=== PATIENT | male | born 1960 | race Two or more races ===

== ENCOUNTER → 2017-07-30 18:33 | Outpatient (CLI) | payer OTHER | END | disposition home or self-care (01) | LOC: RAD 18:33 | DX: M19.142 Post-traumatic osteoarthritis, left hand (principal) ==

== ENCOUNTER → 2017-08-17 | Emergency (ER) | payer OTHER | END | disposition left against medical advice (07) | LOC: ER 21:01 | DX: Z53.20 Procedure and treatment not carried out because of patient's decision for unspecified reasons (principal) ==

== ENCOUNTER → 2017-08-21 18:42 | Outpatient (CLI) | payer OTHER | END | disposition home or self-care (01) | LOC: RAD 18:42 | DX: M19.142 Post-traumatic osteoarthritis, left hand (principal) ==

== ENCOUNTER 2019-03-04 19:38 | Emergency (ER) | payer OTHER ==
[~2019-03-04] VITALS: Ht 185.4 cm; Wt 91.2 kg
[2019-03-04] MEDS ORDERED: HORIZANT300 MG (19:50)
[2019-03-04] MEDS ORDERED: PEPCID AC20 MG (19:50)
[2019-03-04] MEDS ORDERED: AMITRIPTYLINE H75 MG (19:51)
[2019-03-04] MEDS ORDERED: AMITRIPTYLINE H25 MG (19:51)
== END 2019-03-04 21:15 | disposition home or self-care (01) ==
LOC: ER 19:38
DX: S61.223A Laceration with foreign body of left middle finger without damage to nail, initial encounter (principal); W25.XXXA Contact with sharp glass, initial encounter; Y93.89 Activity, other specified; Y92.89 Other specified places as the place of occurrence of the external cause; Y99.8 Other external cause status

== ENCOUNTER 2022-08-03 03:33 | Inpatient (IN) | payer OTHER ==
[~2022-08-03] VITALS: Ht 248.9 cm; Wt 86.2 kg
[~2022-08-03 03:33] MED LIST: AMITRIPTYLINE H25 MG; AMITRIPTYLINE H75 MG; HORIZANT300 MG; PEPCID AC20 MG
[2022-08-03] MEDS ORDERED: LYRICA50 MG (03:44)
[2022-08-03] MEDS ORDERED: CRESTOR5 MG (03:47)
--- NOTE | 2022-08-03 03:48 | NUR ---
SE RECIBE PACIENTE MASCULINO ALERTA Y ORIENTADO X 3 ESFERAS AMBULANDO AL AREA DE TRIAGE EL CUAL INDICA QUE DESDE HACE DOS HORAS PRESENTA DOLOR ABDOMINAL CONTINUO EN CUADRANTE INFERIOR CHAPIN. NO REFIERE DIARREAS NI VOMITOS.
--- NOTE | 2022-08-03 04:05 | NUR ---
EVALUA PTE. SE ORIENTA SOBRE TX MEDICO EL CUAL REFIERE COMPRENDER. SE COLECTAN MUESTRAS DE LABORATORIO BAJO MEDIDAS ASEPTICAS Y SE ENVIAN AL LABORATORIO. SE ADMINISTRAN MEDICAMENTOS CARMELO ORDEN MEDICA. SE COORDINA CT. PTE MANEJADO POR .
--- NOTE | 2022-08-03 11:22 | NUR ---
PTE RE EVALUADO POR DR MAGALIS MEEK ORDENA INSERTAR NGT Y MANTENERLO A SUCCION INTERMITENTE. SE COLOCA NGT MANTENIENDO MEDIDAS ACEPTICAS. PTE BAJO OBSERBACION POR CAMBIO EN PANIAGUA CONDICION.
[2022-08-04] MEDS ORDERED: DODEX1000 MCG/1 (13:57)
[2022-08-04] MEDS ORDERED: OMEGA-3 ACID ETH1 GM (13:57)
== END 2022-08-05 14:00 | disposition home or self-care (01) | DRG 390 ==
LOC: ER 03:33 → SURH 11:46
PROVIDERS: ADMIT Specialist; ATTEND Specialist
PROC: BW21ZZZ Computerized Tomography (CT Scan) of Abdomen and Pelvis (ICD-10-PCS; principal; 2022-08-04)
DX: K56.600 Partial intestinal obstruction, unspecified as to cause (principal); Z20.822 Contact with and (suspected) exposure to COVID-19